=== PATIENT | female | born 1970 | race African-American/Black ===

== ENCOUNTER 2017-05-07 14:02 | Emergency (ER) | payer OTHER ==
[~2017-05-07] VITALS: Ht 170.2 cm; Wt 71.2 kg
[~2017-05-07 14:02] MED LIST: BACTRIM DS TABL1 TA1 PO; HYDROCHLOROTHIA25 MG PO; KEFLEX500 MG PO; NAPROSYN500 MG PO; NORVASC PO; ORUDIS75 M1 PO; PREDNISONE PO
[2017-05-07 15:34] LABS: URINE SOURCE CLEAN CATCH
[2017-05-07 15:40] LABS: URINE APPEARANCE CLEAR; URINE BILIRUBIN NEG (NEG); URINE BLOOD NEG (NEG); URINE COLOR YELLOW; URINE GLUCOSE NEG (NEG); URINE KETONE NEG (NEG); URINE LEUKOCYTE ESTERASE NEG (NEG); URINE NITRATE NEG (NEG); URINE PH 6.5 (5-8); URINE PROTEIN NEG (NEG); URINE SPECIFIC GRAVITY 1.009 (1.003-1.035); URINE UROBILINOGEN 0.2 MG/DL (NEG)
[2017-05-07 15:44] LABS: CULTURE INDICATED? NO
[2017-05-11 11:40] LABS: CHLAMYDIA TRACH Not Detected (Not Detected); N GONOR Not Detected (Not Detected)
== END 2017-05-07 16:37 | disposition home or self-care (01) ==
LOC: CED 14:02 → CFTX 14:02
PROVIDERS: Nurse Practitioner
DX: N76.0 Acute vaginitis (principal); I10 Essential (primary) hypertension; F17.210 Nicotine dependence, cigarettes, uncomplicated
CPT/HCPCS: 81003; 84703; 87491; 87591; 87808; 87905; 99284